=== PATIENT | male | born 1965 | race Hispanic/Latino ===

== ENCOUNTER → 2018-07-06 | Day surgery (SDC) | payer OTHER ==
[~2018-07-06] MED LIST: FENTANYL CITRATE/PF 100MCG/2 ML INJ ONE; MIDAZOLAM HCL 2 MG/2 ML VIAL ONE; MULTIVITAMINS1 EAC7 PO; PROPOFOL IV EMULSION 10 MG/ML 50 ML VIAL ONE
[2018-07-06 11:50] VITALS: BP 127/74
--- OUTSIDE RECORDS SUMMARY | 2018-07-07 12:20 | XMS REPORT ---
Author Author Admin, [place] Weir Organization [facility] Address Unknown Phone Unavailable Allergies, Adverse Reactions, Alerts Allergy Name Reaction Description Start Date Severity Status Provider No Known Allergies Kathy Ashley MA Conditions or Problems Problem Name Problem Code Onset Date Status Entry Date Provider Comment Standard Description Annotate Dermatitis 692.9 Active Brodie Jones MD Contact dermatitis and other eczema, unspecified cause Stye, internal 373.12 Active Brodie Jones MD Hordeolum internum Knee pain, left 719.46 Active Brodie Jones MD Pain in joint involving lower leg Rectal cancer, currently undergoing chemotherapy 154.1 Active Arin Thompson MD Malignant neoplasm of rectum RUQ pain 789.01 Active Arin Thompson MD Abdominal pain, right upper quadrant Colonic polyps 211.3 Active Arin Thompson MD Benign neoplasm of colon s/p 3 colonoic polyp removed 04/[address] Pereira Prediabetes 790.29 Active Arin Thompson MD Other abnormal glucose Rectal mass 569.49 Active Arin Thompson MD Other specified disorders of rectum and anus found on colonoscopy 04/2016, referred to colorectal surgery BMI 36.0-36.9 Active Arin Thompson MD Body Mass Index 36.0-36.9, adult Dietary surveillance and counseling V65.3 Active Arin Thompson MD Dietary surveillance and counseling Encounter for immunization V05.9 Active Arin Thompson MD Need for prophylactic vaccination and inoculation against unspecified single disease Obesity Active Arin Thompson MD Obesity, unspecified Screening for colon cancer ICD-V76.51 Inactive Arin Thompson MD Screening for std ICD-V74.5 Inactive Arin Thompson MD Screening for colon cancer V76.51 Resolved Arin Thompson MD Screening for malignant neoplasms of colon Screening for std V74.5 Resolved Arin Thompson MD Screening examination for venereal disease Medication List Medication Instructions Start Date Stop Date Generic Name NDC Status Provider Patient Instruction HYDROCORTISONE 2.5 % EXTERNAL CREAM apply to affected area Three Times a Day HYDROCORTISONE 81078646161 Active Brodie Jones MD Active OMEPRAZOLE 20 MG ORAL CAPSULE DELAYED RELEASE 1 by mouth twice a day OMEPRAZOLE 84684555365 Active Arin Thompson MD Active Immunizations Vaccine Administration Date Value Standard Description influenza immunization (Flu Vax) has been administered given influenza virus vaccine, unspecified formulation Tetanus toxoid, reduced diphtheria toxoid and acellular Pertussis vaccine, absorbed (TdaP) given given tetanus toxoid, reduced diphtheria toxoid, and acellular pertussis vaccine, adsorbed Vital Signs Date Name Value Unit Range Description blood pressure, diastolic 78 mm[Hg] BP hanson blood pressure, systolic 143 mm[Hg] BP sys height E&M 69 [in_us] Bdy height pulse rate E&M 66 /min Heart rate respiratory rate E&M 18 /min Resp rate temperature E&M 98.0 [degF] Body temperature weight E&M 258 [lb_av] Weight Measured blood pressure, diastolic 83 mm[Hg] BP hanson blood pressure, systolic 133 mm[Hg] BP sys height E&M 69 [in_us] Bdy height pulse rate E&M 75 /min Heart rate respiratory rate E&M 18 /min Resp rate temperature E&M 98.1 [degF] Body temperature weight E&M 265 [lb_av] Weight Measured blood pressure, diastolic 87 mm[Hg] BP hanson blood pressure, systolic 136 mm[Hg] BP sys height E&M 69 [in_us] Bdy height pulse rate E&M 76 /min Heart rate respiratory rate E&M 20 /min Resp rate temperature E&M 97.8 [degF] Body temperature weight E&M 266.80 [lb_av] Weight Measured Diagnostic Results Date Name Value Unit Range Description Lab Report: Comp. Metabolic Panel (14), Lipid Panel, Hemoglobin A1c, Telles ... - Chemistry sodium, serum 142 mmol/L 134-144 Lab Report: Comp. Metabolic Panel (14), Lipid Panel, Hemoglobin A1c, Telles ... - Serology rapid plasma reagin antibody, serum Non Reactive Non Reactive Lab Report: Comp. Metabolic Panel (14), Lipid Panel, Hemoglobin A1c, Telles ... - Chemistry very low density lipoproteins 19 mg/dL 5-40 hepatitis B surface antigen Negative Negative carbon dioxide, venous blood 24 mmol/L 18-29 chloride, serum 101 mmol/L 97-108 triglyceride, serum, fasting 94 mg/dL 0-149 calcium, serum 9.9 mg/dL 8.7-10.2 urea nitrogen, blood 14 mg/dL 6-24 alanine aminotransferase (SGPT), serum 30 U/L 0-44 protein, total, serum 7.4 g/dL 6.0-8.5 alkaline phosphatase, serum 81 U/L 39-117 Lab Report: Comp. Metabolic Panel (14), Lipid Panel, Hemoglobin A1c, Telles ... - Serology hepatitis C antibody, serum <0.1 0.0-0.9 Lab Report: Comp. Metabolic Panel (14), Lipid Panel, Hemoglobin A1c, Telles ... - Chemistry LDL cholesterol, serum 121 mg/dL 0-99 urea nitrogen/creatinine ratio, serum 14 9-20 hemoglobin A1C, blood, as % of total hemoglobin 5.8 % 4.8-5.6 HDL cholesterol, serum 61 mg/dL >39 Lab Report: Comp. Metabolic Panel (14), Lipid Panel, Hemoglobin A1c, Telles ... - Genetics/fertility eGFR if 103 mL/min/1.73m2 >59 Lab Report: Comp. Metabolic Panel (14), Lipid Panel, Hemoglobin A1c, Telles ... - Chemistry globulin, serum 2.8 1.5-4.5 albumin/globulin ratio, serum 1.6 1.1-2.5 creatinine, serum 0.98 mg/dL 0.76-1.27 Estimated Glomerular Filtration Rate (calc) 90 mL/min/1.73m2 >59 cholesterol, serum 201 mg/dL [phone]/09/01 bilirubin, serum, total 0.3 mg/dL 0.0-1.2 blood glucose, random 113 mg/dL 65-99 aspartate aminotransferase (SGOT), serum 22 U/L 0-40 potassium, serum 4.8 mmol/L 3.5-5.2 albumin, serum 4.6 g/dL 3.5-5.5 Encounters Date Encounter Provider Code Facility 11:35:33 CDT Est Patient Exp Problem - [id number] Brodie Jones MD CPT-91674 [facility] 08:33:44 [employer] DES[employer] Est Patient Exp Problem - 48603 Brodie Jones MD CPT-91364 [facility] 12:34:39 [employer] Est Patient Exp Problem - 46803 Brodie Jones MD CPT-99895 [facility] 10:25:18 CDT Est Patient Exp Problem - 19059 Arin Thompson MD CPT-60826 [facility] 09:26:15 [employer] DES[employer]ER Est Patient Exp Problem - 23418 Arin Thompson MD CPT-75345 [facility] 11:18:06 CDT New Patient Detailed - 27582 Arin Thompson MD CPT-78739 [facility] Procedures Code Procedure Name Date Entry Date Standard Description CPT-03071 EKG - Tracing Only 10:25:16 CDT CPT-84036 INFLUENZA VACCINE QUADRIVALENT 3 YRS PLUS IM 09:26:20 [employer]HE[employer] DES[employer]ER CPT-39205 TDAP 11:18:16 CDT
== END | disposition home or self-care (01) ==
LOC: OR 08:15
PROVIDERS: ATTEND Internal Medicine Gastroenterology
DX: Z08 Encounter for follow-up examination after completed treatment for malignant neoplasm (principal); D12.3 Benign neoplasm of transverse colon; D12.4 Benign neoplasm of descending colon; K64.8 Other hemorrhoids; K21.9 Gastro-esophageal reflux disease without esophagitis; Z01.810 Encounter for preprocedural cardiovascular examination; Z68.37 Body mass index [BMI] 37.0-37.9, adult; Z85.048 Personal history of other malignant neoplasm of rectum, rectosigmoid junction, and anus; Z80.0 Family history of malignant neoplasm of digestive organs
CPT/HCPCS: 45378; 45380; 45384; 93005; J2250

== ENCOUNTER → 2022-08-26 | Day surgery (SDC) | payer BC, OTHER ==
[~2022-08-26] MED LIST changes: -FENTANYL CITRATE/PF 100MCG/2 ML INJ ONE; +LACTATED RINGER'S 1,000 ML ONE; +LIDOCAINE HCL 2% LOCAL INJ 5 ML SDV VIAL INJ ONE; +PROPOFOL IV EMULSION 10 MG/ML 20 ML VIAL ONE; -PROPOFOL IV EMULSION 10 MG/ML 50 ML VIAL ONE; +SIMETHICONE 40 MG/0.6 ML BTL ONE; +VITAMIN D3 COM1 EACH PO
[2022-08-26 13:00] VITALS: BP 139/72
== END | disposition home or self-care (01) ==
LOC: OR 09:38
PROVIDERS: ATTEND Internal Medicine Gastroenterology
DX: Z12.11 Encounter for screening for malignant neoplasm of colon (principal); D12.2 Benign neoplasm of ascending colon; K64.8 Other hemorrhoids; Z01.810 Encounter for preprocedural cardiovascular examination; Z68.42 Body mass index [BMI] 45.0-49.9, adult; Z85.048 Personal history of other malignant neoplasm of rectum, rectosigmoid junction, and anus; Z92.21 Personal history of antineoplastic chemotherapy; Z92.3 Personal history of irradiation; Z80.0 Family history of malignant neoplasm of digestive organs
CPT/HCPCS: 45384; 93005; J2001; J2250; J2704; J7121; 45378